=== PATIENT | female | born 1980 | race Caucasian/White ===

== ENCOUNTER 2019-02-25 08:28 | Day surgery (SDC) | payer BC ==
[~2019-02-25] VITALS: Ht 165.1 cm; Wt 67.9 kg
[~2019-02-25 08:28] MED LIST: ACEBUTCAFT PO; ACET325 PO; ALBU90OI6 INH; AMOCLA875 PO; AZIT250 PO; BCOIRO PO; BELPTAB PO; BIRTH CONTROL; BUSP15 PO; CIPR500 PO; CODGUAEL PO; CYCL10 PO; ESOM20; FLUT44OIA IH; HYDACE5 PO; IBUP200 PO; IBUP600 PO; IBUP800; IBUP800 PO; LAMO100 PO; LORA10ER PO; METERG.2 PO; METR500 PO; MULVITMINE; Norco 5-325 Ta1 EACH PO; OXYC5 PO; PARO10 PO; PROG100 PO; PROM25 PO; QUET25 PO; RANI150 PO; RXCYCL10 PO; RXHYDACE PO; RXTRAM50 PO; SULTRIDS PO; TOPI25 PO; TRAM50 PO; ZOLP10 PO
[2019-02-25] MEDS ORDERED: CYCL10 PO (09:19)
--- NOTE | 2019-02-25 10:56 | NUR ---
02/25/19 1056 Clarissa Green V PT MEDICATED FOR PAIN PER ORDERS. PT RESTING WITH OPERATIVE LIMB ELEVATED AND POLAR CARE INITIATED, WARM BLANKETS GIVEN FOR COMFORT.
== END 2019-02-25 12:03 | disposition home or self-care (01) ==
LOC: ORSCSDS 08:28
PROVIDERS: Orthopaedic Surgery
PROC: 0SQC4ZZ Repair Right Knee Joint, Percutaneous Endoscopic Approach (ICD-10-PCS; principal; 2019-02-25 10:00)
DX: S83.241A Other tear of medial meniscus, current injury, right knee, initial encounter (principal); M22.41 Chondromalacia patellae, right knee; F17.210 Nicotine dependence, cigarettes, uncomplicated; K21.9 Gastro-esophageal reflux disease without esophagitis; J45.909 Unspecified asthma, uncomplicated; Z79.899 Other long term (current) drug therapy
CPT/HCPCS: A9270-GY; C1713; J0171; J0690; J1100; J1885; J2250; J2405; J2704; J2795; J3010; J7120

== ENCOUNTER → 2021-02-08 | Outpatient (CLI) | payer BC | LOC: LAB SHORT 13:51 → LAB 13:51 | DX: R30.0 Dysuria (principal) | CPT/HCPCS: 87077; 87086; 87186 ==

== ENCOUNTER → 2024-03-13 | Outpatient (CLI) | payer BC ==
[2024-03-13 17:48] LABS: U Amphetamine Screen Not Detected; U Barbituate Screen Not Detected; U Benzodiazapine Screen Not Detected; U Buprenorphine Screen Not Detected; U Cannabinoids Screen Not Detected; U Cocaine Screen Not Detected; U Methadone Screen Not Detected; U Methamphetamine Screen Not Detected; U Opiates Screen DETECTED; U Oxycodone Screen Not Detected; U Phencyclidine Screen Not Detected
== END ==
LOC: LAB 11:37 → LAB SHORT 11:37
PROVIDERS: Physician Assistant
DX: Z79.891 Long term (current) use of opiate analgesic (principal)